=== PATIENT | male | born 1940 | race Caucasian/White ===

== ENCOUNTER 2021-11-24 15:18 | Observation (INO) | payer MEDICARE, OTHER ==
[2021-11-24 15:55] LABS: #Basophils 0.1 10x3/uL (0.0-0.2); #Eosinphils 0.1 10x3/uL (0.0-0.5); #Monocytes 0.6 10x3/uL (0.0-1.1); #Neutrophils 3.8 10x3/uL (1.5-8.4); %Basophils 0.8 % (0.0-2.0); %Lymphocytes 24.5 % (18.0-47.0); %Monocytes 9.6 % (0.0-10.0); %Neutrophils 62.4 % (40.0-75.0); Hemoglobin 13.6 g/dL (13.5-17.5); Mean Corpuscular HGB CONC 34.1 g/dL (32.0-36.0); Mean Corpuscular Hemoglobin 35.1 pg (27.0-33.0); Mean Corpuscular Volume 102.8 fl (81.2-95.1); Platelet Count 183 10x3/uL (150-450); RBC Distribution Width 14.6 % (11.5-14.5); Red Blood Cell (RBC) Count 3.88 10x6/uL (4.32-5.72); White Blood Cell (WBC) Count 6.1 10x3/uL (3.5-10.5)
[2021-11-24] MEDS ORDERED: Nitroglycerin 0.4 MG TAB 1 EACH ONE (15:57)
[2021-11-24] MEDS ORDERED: Aspirin Chewable 81 MG TAB ONE (15:59)
[2021-11-24 16:10] LABS: ALT (SGPT) 18 U/L (8-55); AST (SGOT) 22 U/L (5-34); Albumin 4.1 g/dL (3.4-4.8); Alkaline Phosphatase 42 U/L (40-110); Anion Gap 14 mmol/L (10-20); BUN (Urea Nitrogen) 17 mg/dL (8.4-25.7); Bilirubin, Total 0.8 mg/dL (0.2-1.2); Calc. Creatinine Clearance 0 mL/min (70-130); Calcium 9.4 mg/dL (7.8-10.44); Carbon Dioxide 28 mmol/L (23-31); Chloride 102 mmol/L (98-107); Globulin 2.6 g/dL (2.4-3.5); Glucose 127 mg/dL (83-110); Potassium 3.7 mmol/L (3.5-5.1); Protein, Total 6.7 g/dL (5.8-8.1); Sodium 140 mmol/L (136-145)
[2021-11-24] MEDS ORDERED: Ondansetron PF 4 MG/2 ML Vial IVP PRN (18:15)
[2021-11-24] MEDS ORDERED: Senokot S 8.6-50 MG TAB PO PRN (18:15)
[2021-11-24] MEDS ORDERED: Ondansetron ODT 4 MG TAB PO PRN (18:15)
[2021-11-24] MEDS ORDERED: HYDROcodone/Acetaminophen 5/325 mg Tablet PO PRN (18:15)
[2021-11-24 19:11] LABS: Troponin I 0.017 ng/mL (< 0.028)
[2021-11-24] MEDS ORDERED: Famotidine 20 MG TAB PO SCH ×2 (21:00→23:00)
[2021-11-24] MEDS ORDERED: Famotidine/PF 20 mg/2ml Vial SLOW IVP SCH (21:00)
[2021-11-24] MEDS ORDERED: Atorvastatin Calcium 40 MG TAB PO SCH ×2 (21:00→23:00)
[2021-11-24] MEDS ORDERED: Gabapentin 300 MG CAP PO SCH ×3 (21:00→23:00)
[2021-11-24] MEDS ORDERED: Guaifenesin DM 100-10/5 ML UDCUP PO PRN (21:09)
[2021-11-24] MEDS ORDERED: Calcium Carbonate 500 MG ChewTAB PO PRN (21:09)
[2021-11-24] MEDS ORDERED: Zolpidem Tartrate 5 MG TAB PO PRN (21:09)
[2021-11-24] MEDS ORDERED: Nitroglycerin 0.4 MG TAB (25 Tab Bottle) SL PRN (21:12)
[2021-11-24 22:12] LABS: Troponin I Less than 0.010 ng/mL (< 0.028)
[2021-11-24 22:15] VITALS: BMI 40.1
[2021-11-24] MEDS ORDERED: Lidocaine 5% Patch TD SCH (23:00)
[2021-11-24] MEDS ORDERED: sulfaSALAzine 500 MG TAB PO SCH (23:00)
[2021-11-24] MEDS: Acetaminophen 325 MG TAB PO PRN (23:06)
[2021-11-25 02:28] LABS: SARS-CoV-2 NAA Rapid Test Not Detected (NotDetected)
[2021-11-25 04:31] LABS: #Eosinphils 0.2 10x3/uL (0.0-0.5); #Monocytes 0.6 10x3/uL (0.0-1.1); #Neutrophils 2.5 10x3/uL (1.5-8.4); %Basophils 0.6 % (0.0-2.0); %Eosinophils 3.4 % (0.0-6.0); %Lymphocytes 33.3 % (18.0-47.0); %Monocytes 11.7 % (0.0-10.0); %Neutrophils 50.4 % (40.0-75.0); Mean Corpuscular HGB CONC 34.4 g/dL (32.0-36.0); Mean Corpuscular Hemoglobin 34.9 pg (27.0-33.0); Mean Corpuscular Volume 101.6 fl (81.2-95.1); Mean Platelet Volume 8.8 fl (7.4-10.4); Platelet Count 161 10x3/uL (150-450); RBC Distribution Width 14.9 % (11.5-14.5); Red Blood Cell (RBC) Count 3.72 10x6/uL (4.32-5.72)
[2021-11-25 04:53] LABS: Anion Gap 14 mmol/L (10-20); BUN (Urea Nitrogen) 18 mg/dL (8.4-25.7); Calc. Creatinine Clearance 95 mL/min (70-130); Carbon Dioxide 27 mmol/L (23-31); Chloride 104 mmol/L (98-107); Glucose 101 mg/dL (83-110); Potassium 3.5 mmol/L (3.5-5.1); Sodium 141 mmol/L (136-145)
[2021-11-25] MEDS: Acetaminophen 325 MG TAB PO PRN (05:07)
[2021-11-25] MEDS ORDERED: Amlodipine 5 MG TAB PO SCH ×2 (09:00)
[2021-11-25] MEDS ORDERED: Gabapentin 300 MG CAP PO SCH (09:00)
[2021-11-25] MEDS ORDERED: sulfaSALAzine 500 MG TAB PO SCH (09:00)
[2021-11-25] MEDS ORDERED: Aspirin Chewable 81 MG TAB PO SCH (09:00)
[2021-11-25] MEDS ORDERED: Tamsulosin HCl 0.4 MG CAP PO SCH (09:00)
[2021-11-25] MEDS ORDERED: Non-Formulary Medication 1 EACH (Citalopram [Celexa] 10 MG Tab) PO SCH (09:00)
[2021-11-25] MEDS ORDERED: Aspirin 81 mg Enteric Coated Tablet PO SCH (09:00)
[2021-11-25] MEDS ORDERED: Polyethylene Glycol 3350 17 GM Packet PO SCH (09:00)
[2021-11-25] MEDS ORDERED: Lisinopril 20 MG TAB PO SCH (09:00)
[2021-11-25] MEDS ORDERED: Famotidine 20 MG TAB PO SCH (09:00)
[2021-11-25] MEDS ORDERED: Non-Formulary Medication 1 EACH (Lisinopril [Lisinopril] 40 MG Tablet) PO SCH (09:00)
[2021-11-25] MEDS ORDERED: Allopurinol 100 MG TAB PO SCH (09:00)
[2021-11-25] MEDS ORDERED: Clopidogrel Bisulfate 75 MG TAB PO SCH ×2 (09:00)
[2021-11-25] MEDS ORDERED: Citalopram 20 MG TAB PO SCH (09:00)
[2021-11-25] MEDS ORDERED: azaTHIOprine 50 MG TAB PO SCH (09:00)
[2021-11-25] MEDS ORDERED: Enoxaparin Sodium 40 MG/0.4 ML SYRINGE SC SCH (09:00)
[2021-11-25] MEDS ORDERED: LIDOCAINE PATCH REMOVAL TOP SCH (11:00)
[2021-11-25 12:37] VITALS: TEMP 97.3
[2021-11-25 13:34] VITALS: BP 132/60
[2021-11-25] MEDS ORDERED: Atorvastatin Calcium 40 MG TAB PO SCH (21:00)
[2021-11-25] MEDS ORDERED: Atorvastatin Calcium 20 MG TAB PO SCH (21:00)
[2021-11-25] MEDS ORDERED: Nortriptyline HCl 25 MG CAP PO SCH (21:00)
[2021-11-26] MEDS ORDERED: azaTHIOprine 50 MG TAB PO SCH (09:00)
== END 2021-11-25 14:07 | disposition home or self-care (01) ==
LOC: CSHERS 15:18 → CSHTELE 21:52
PROVIDERS: ADMIT Internal Medicine; ATTEND Internal Medicine
DX: R07.89 Other chest pain (principal); M54.2 Cervicalgia; I25.10 Atherosclerotic heart disease of native coronary artery without angina pectoris; E78.2 Mixed hyperlipidemia; I12.9 Hypertensive chronic kidney disease with stage 1 through stage 4 chronic kidney disease, or unspecified chronic kidney disease; N18.30 Chronic kidney disease, stage 3 unspecified; M79.602 Pain in left arm; G89.29 Other chronic pain; M54.50 Low back pain, unspecified; G62.9 Polyneuropathy, unspecified; M10.9 Gout, unspecified; G47.33 Obstructive sleep apnea (adult) (pediatric); K51.90 Ulcerative colitis, unspecified, without complications; N40.0 Benign prostatic hyperplasia without lower urinary tract symptoms; D75.89 Other specified diseases of blood and blood-forming organs; I44.0 Atrioventricular block, first degree; I49.3 Ventricular premature depolarization; E66.01 Morbid (severe) obesity due to excess calories; Z68.41 Body mass index [BMI] 40.0-44.9, adult; Z85.46 Personal history of malignant neoplasm of prostate; Z79.02 Long term (current) use of antithrombotics/antiplatelets; Z79.82 Long term (current) use of aspirin; Z79.899 Other long term (current) drug therapy; Z95.5 Presence of coronary angioplasty implant and graft; Z20.822 Contact with and (suspected) exposure to COVID-19
CPT/HCPCS: 71045; 80048; 80053; 84484 ×3; 85025 ×2; 93005; 93306; 97116; 97139; U0002; 36415; 96372; G0378; J1650; J7500

== ENCOUNTER 2022-06-01 15:30 | Inpatient (IN) | payer MEDICARE, OTHER ==
[2022-06-01 15:55] LABS: #Eosinphils 0.2 10x3/uL (0.0-0.5); #Monocytes 0.9 10x3/uL (0.0-1.1); #Neutrophils 8.5 10x3/uL (1.5-8.4); %Basophils 0.2 % (0.0-2.0); %Eosinophils 1.9 % (0.0-6.0); %Monocytes 8.9 % (0.0-10.0); %Neutrophils 82.5 % (40.0-75.0); Hemoglobin 13.1 g/dL (13.5-17.5); Mean Corpuscular HGB CONC 33.8 g/dL (32.0-36.0); Mean Corpuscular Hemoglobin 33.5 pg (27.0-33.0); Mean Corpuscular Volume 99.2 fl (81.2-95.1); Mean Platelet Volume 9.4 fl (7.4-10.4); Platelet Count 457 10x3/uL (150-450); RBC Distribution Width 15.6 % (11.5-14.5); Red Blood Cell (RBC) Count 3.91 10x6/uL (4.32-5.72); White Blood Cell (WBC) Count 10.2 10x3/uL (3.5-10.5)
[2022-06-01] MEDS ORDERED: Ondansetron PF 4 MG/2 ML Vial ONE (16:10)
[2022-06-01] MEDS ORDERED: Morphine 2 MG/ML VIAL ONE ×2 (16:10→19:56)
[2022-06-01 16:13] LABS: ALT (SGPT) 141 U/L (8-55); AST (SGOT) 175 U/L (5-34); Alkaline Phosphatase 224 U/L (40-110); Anion Gap 10 mmol/L (10-20); BUN (Urea Nitrogen) 35 mg/dL (8.4-25.7); Bilirubin, Total 1.3 mg/dL (0.2-1.2); Calc. Creatinine Clearance 0 mL/min (70-130); Calcium 8.7 mg/dL (7.8-10.44); Carbon Dioxide 27 mmol/L (23-31); Chloride 110 mmol/L (98-107); Estimated GFR 45; Globulin 3.4 g/dL (2.4-3.5); Glucose 119 mg/dL (83-110); Lipase 219 U/L (8-78); Potassium 4.4 mmol/L (3.5-5.1); Protein, Total 6.4 g/dL (5.8-8.1); Sodium 143 mmol/L (136-145)
[2022-06-01 18:19] LABS: Bilirubin Neg (Negative); Blood, Urine 10 (Negative); Clarity Clear (Clear); Glucose, Urine (Dipstick) Normal (Negative); Ketone, Urine Negative (Negative); Leukocyte 25 (Negative); Nitrite Negative (Negative); Protein, Urine (Dipstick) 100 mg/dl (Neg-Trace); Urobilinogen Normal mg/dL (Less than 2)
[2022-06-01 18:35] LABS: Bacteria/HPF None Seen HPF (None Seen); RBC/HPF 0-3 HPF (0-3); Squamous Epithelial 0-3 HPF (0-3); WBC/HPF 0-3 HPF (0-3)
[2022-06-01] MEDS ORDERED: Ondansetron PF 4 MG/2 ML Vial IVP PRN (19:08)
[2022-06-01] MEDS ORDERED: Ondansetron ODT 4 MG TAB PO PRN (19:08)
[2022-06-01] MEDS ORDERED: Lorazepam 0.5 MG TAB ONE (19:56)
[2022-06-01] MEDS ORDERED: Lorazepam 0.5 MG TAB PO SCH (22:00)
[2022-06-01] MEDS: Sodium Chloride 0.9% 1,000 ML IV SCH (22:25)
[2022-06-01] MEDS ORDERED: Piperacillin/Tazobactam 3.375 GM in Sodium Chloride 0.9% 100 ML IVPB SCH ×2 (22:45→23:59)
[2022-06-01 22:56] VITALS: BMI 28.7
[2022-06-02] MEDS ORDERED: FLU VACC QS2022-23(65YR UP)/PF 240 MCG/0.7 ML SYRINGE IM ONE (00:30)
[2022-06-02] MEDS: Morphine 2 MG/ML VIAL SLOW IVP PRN ×3 (00:36→12:24)
[2022-06-02] MEDS: Piperacillin/Tazobactam 3.375 GM in Sodium Chloride 0.9% 100 ML IVPB SCH ×3 (04:53→20:36)
[2022-06-02] MEDS: Sodium Chloride 0.9% 1,000 ML IV SCH ×4 (07:23→18:01)
[2022-06-02] MEDS ORDERED: traMADol HCl 50 MG TAB PO SCH (08:00)
[2022-06-02] MEDS ORDERED: Aspirin 81 mg Enteric Coated Tablet PO SCH (09:00)
[2022-06-02] MEDS: Metoprolol Tartrate 50 MG TAB PO SCH ×2 (09:19→20:37)
[2022-06-02] MEDS: Clopidogrel Bisulfate 75 MG TAB PO SCH (09:19)
[2022-06-02 09:41] LABS: #Eosinphils 0.1 10x3/uL (0.0-0.5); #Neutrophils 9.2 10x3/uL (1.5-8.4); %Basophils 0.3 % (0.0-2.0); %Eosinophils 1.1 % (0.0-6.0); Mean Corpuscular HGB CONC 33.7 g/dL (32.0-36.0); Mean Corpuscular Hemoglobin 33.3 pg (27.0-33.0); Mean Corpuscular Volume 98.9 fl (81.2-95.1); Mean Platelet Volume 9.5 fl (7.4-10.4); Platelet Count 386 10x3/uL (150-450); RBC Distribution Width 15.9 % (11.5-14.5); White Blood Cell (WBC) Count 10.9 10x3/uL (3.5-10.5)
[2022-06-02 09:45] LABS: SARS-CoV-2 NAA Rapid Test DETECTED (NotDetected)
[2022-06-02 09:50] LABS: ALT (SGPT) 109 U/L (8-55); AST (SGOT) 110 U/L (5-34); Albumin 2.5 g/dL (3.4-4.8); Alkaline Phosphatase 189 U/L (40-110); Anion Gap 11 mmol/L (10-20); BUN (Urea Nitrogen) 27 mg/dL (8.4-25.7); Bilirubin, Total 1.5 mg/dL (0.2-1.2); Calc. Creatinine Clearance 51 mL/min (70-130); Calcium 8.3 mg/dL (7.8-10.44); Carbon Dioxide 23 mmol/L (23-31); Chloride 114 mmol/L (98-107); Estimated GFR 48; Globulin 3.2 g/dL (2.4-3.5); Glucose 98 mg/dL (83-110); Potassium 4.4 mmol/L (3.5-5.1); Protein, Total 5.7 g/dL (5.8-8.1); Sodium 144 mmol/L (136-145)
[2022-06-02] MEDS ORDERED: Morphine 2 MG/ML VIAL SLOW IVP PRN (16:20)
[2022-06-02] MEDS: Morphine 4 MG/ML VIAL SLOW IVP PRN (18:05)
[2022-06-02] MEDS ORDERED: Piperacillin/Tazobactam 3.375 GM VIAL ONE (20:30)
[2022-06-02] MEDS ORDERED: Gabapentin 300 MG CAP PO SCH (23:15)
[2022-06-03] MEDS: Sodium Chloride 0.9% 1,000 ML IV SCH ×2 (05:07→10:58)
[2022-06-03] MEDS: Piperacillin/Tazobactam 3.375 GM in Sodium Chloride 0.9% 100 ML IVPB SCH ×2 (05:08→10:58)
[2022-06-03 05:10] LABS: Hemoglobin 12.8 g/dL (13.5-17.5); MDiff Complete? YES; Mean Corpuscular HGB CONC 34.1 g/dL (32.0-36.0); Mean Corpuscular Hemoglobin 33.2 pg (27.0-33.0); Mean Corpuscular Volume 97.4 fl (81.2-95.1); Mean Platelet Volume 9.7 fl (7.4-10.4); Platelet Count 397 10x3/uL (150-450); RBC Distribution Width 16.1 % (11.5-14.5); Red Blood Cell (RBC) Count 3.85 10x6/uL (4.32-5.72); White Blood Cell (WBC) Count 14.4 10x3/uL (3.5-10.5)
[2022-06-03 05:30] LABS: ALT (SGPT) 163 U/L (8-55); AST (SGOT) 189 U/L (5-34); Albumin 2.4 g/dL (3.4-4.8); Alkaline Phosphatase 356 U/L (40-110); Anion Gap 14 mmol/L (10-20); BUN (Urea Nitrogen) 27 mg/dL (8.4-25.7); Bilirubin, Total 3.8 mg/dL (0.2-1.2); Calc. Creatinine Clearance 48 mL/min (70-130); Calcium 8.5 mg/dL (7.8-10.44); Carbon Dioxide 20 mmol/L (23-31); Chloride 116 mmol/L (98-107); Estimated GFR 45; Globulin 3.3 g/dL (2.4-3.5); Glucose 112 mg/dL (83-110); Lipase 81 U/L (8-78); Potassium 4.9 mmol/L (3.5-5.1); Protein, Total 5.7 g/dL (5.8-8.1); Sodium 145 mmol/L (136-145)
[2022-06-03 06:33] LABS: Band 7 % (5-11); Lymphocytes 8 % (21-51); Monocytes 4 % (0-10); Neutrophil 80 % (42-75); Reactive Lymphocytes 1 % (0-10)
[2022-06-03 06:35] LABS: Diff Comment (RBC Morph SCRN) NORMAL; Platelet Morphology Comment Appears Adequate
[2022-06-03] MEDS ORDERED: Dexamethasone 4 MG TAB PO SCH (08:00)
[2022-06-03] MEDS ORDERED: Aspirin Chewable 81 MG TAB PO SCH (09:00)
[2022-06-03] MEDS ORDERED: Pantoprazole 40 MG VIAL IVP SCH (09:00)
[2022-06-03] MEDS ORDERED: Aspirin Chewable 81 MG TAB ONE ×2 (10:52)
[2022-06-03] MEDS: Morphine 4 MG/ML VIAL SLOW IVP PRN ×2 (10:57→15:27)
[2022-06-03] MEDS: Metoprolol Tartrate 50 MG TAB PO SCH (10:57)
[2022-06-03] MEDS: Clopidogrel Bisulfate 75 MG TAB PO SCH (10:58)
[2022-06-03] MEDS ORDERED: Gabapentin 300 MG CAP PO SCH ×2 (13:00→21:00)
[2022-06-03] MEDS ORDERED: hydrOXYzine 10 MG TAB PO SCH (15:00)
[2022-06-03] MEDS ORDERED: UDCUP PO SCH (17:30)
[2022-06-03] MEDS ORDERED: GABAPENTIN 250 MG/5 ML PO SCH (17:30)
[2022-06-03 17:37] VITALS: BP 120/75; TEMP 97.8
[2022-06-04 05:12] LABS: IgG Subclass 1 577 mg/dL (248-810); IgG Subclass 2 454 mg/dL (130-555); IgG Subclass 3 63 mg/dL (15-102); Immunoglobulin - G (Sendout) 1143 mg/dL (603-1613)
== END 2022-06-03 17:40 | disposition short-term general hospital (02) | DRG 438 ==
LOC: CSHERS 15:30 → CSHTELE 18:42 → OBSVTOIN 06-03 11:52
PROVIDERS: ADMIT Internal Medicine; ATTEND Internal Medicine
PROC: 3E0DX3Z Introduction of Anti-inflammatory into Mouth and Pharynx, External Approach (ICD-10-PCS; principal; 2022-06-03)
PROC: 8E0ZXY6 Isolation (ICD-10-PCS; 2022-06-03)
DX: K85.91 Acute pancreatitis with uninfected necrosis, unspecified (principal); G93.41 Metabolic encephalopathy; U07.1 COVID-19; J96.01 Acute respiratory failure with hypoxia; J12.82 Pneumonia due to coronavirus disease 2019; K50.90 Crohn's disease, unspecified, without complications; N17.9 Acute kidney failure, unspecified; I25.10 Atherosclerotic heart disease of native coronary artery without angina pectoris; I10 Essential (primary) hypertension; E78.5 Hyperlipidemia, unspecified; I48.0 Paroxysmal atrial fibrillation; G58.8 Other specified mononeuropathies; Z88.8 Allergy status to other drugs, medicaments and biological substances; Z79.82 Long term (current) use of aspirin; Z79.899 Other long term (current) drug therapy; Z95.5 Presence of coronary angioplasty implant and graft; Z85.46 Personal history of malignant neoplasm of prostate
CPT/HCPCS: 36415; 70450; 70551; 71045; 76705; 80053; 81015; 82787; 83605; 83690; 84484; 85025; 93005; C9113; J2270; J2405; J2543; J3490; J7050; J8540; U0002